=== PATIENT | male | born 1970 | race Caucasian/White ===

== ENCOUNTER → 2019-06-13 10:54 | Outpatient (BNVA) | payer OTHER, SELFPAY | PROVIDERS: Family Provider Internal Medicine; PCP Internal Medicine; Visit Provider Internal Medicine Rheumatology | DX: Z79.899 Other long term (current) drug therapy (principal); Z11.59 Encounter for screening for other viral diseases; Z72.89 Other problems related to lifestyle | CPT/HCPCS: 36415; 86803 ==

== ENCOUNTER → 2019-07-15 11:13 | Outpatient (BNVA) | payer OTHER, SELFPAY | PROVIDERS: Family Provider Internal Medicine; PCP Internal Medicine; Visit Provider Urology | DX: N43.3 Hydrocele, unspecified (principal); N20.9 Urinary calculus, unspecified; M45.2 Ankylosing spondylitis of cervical region | CPT/HCPCS: 81001 ==

== ENCOUNTER 2019-07-22 11:17 | Day surgery (SDC) | payer OTHER, SELFPAY ==
[2019-07-19 10:02] VITALS: BMI 38.7
[2019-07-22] VITALS (7 sets, daily range): BP systolic 90–168; BP diastolic 53–106; PULSE 67–80; RESP 15–19; TEMP 36.4–36.6; O2SAT 92–97
[2019-07-22] MEDS: sodium chloride 0.9% 1,000 ML 30 ML IV (11:48)
--- NOTE | 2019-07-22 11:54 | P.HPUD_ITS ---
Surgery/Procedure H&P Update DATE OF PROCEDURE: July 22, 2019 DATE H&P PERFORMED: 07/15/19 H&P UPDATE INFORMATION: I have reviewed H&P completed within last 30 days, I have examined patient prior to procedure, No changes to prior documentation and H&P is in [facility] EMR on date indicated PREOP DIAGNOSIS: Symptomatic bilateral hydroceles PLANNED PROCEDURE: Operation Date: 07/22/19 12:00 Proposed Procedures p Hydrocele Repair 63627 N43.3(Bilateral) - Kory Holt MD
--- NOTE | 2019-07-22 11:55 | ANES.PREANE2 ---
Pre-Anesthetic Assessment Pre-Anesthetic Assessment: Height/Weight: Height 1.68 m Weight 108.862 kg Temp Pulse Resp BP Pulse Ox 97.7 F 67 18 168/106 97 07/22/19 11:32 07/22/19 11:32 07/22/19 11:32 07/22/19 11:32 07/22/19 11:32 Preop Diagnosis: Symptomatic bilateral hydroceles Proposed Procedure: Operation Date: 07/22/19 12:00 Proposed Procedures p Hydrocele Repair 20062 N43.3(Bilateral) - Kory Holt MD Familial anesthetic complications: Patient has severe gag reflex and aspirated with his last holt surgery, had to spend the night. He developed no sequelae afterwards. Will make sure deep when intubating, place OG, and make sure awake and following commands before extubation. Was Beta Dashawn taken within 24 hours: N/A Last intake: Intake Last Liquid Date 07/22/19 Last Liquid Time 07:00 Last Solid Date 07/21/19 Last Solid Time 20:00 Social: Social History: Tobacco Exam: Pre-Anes Outpt Exam: alert, oriented x 3, clear to auscultation bilaterally and regular rate & rhythm Airway: Cervical ROM: Other (limited extension w/ ankylosing spondylitis) MP: 4 Dentition: Chipped Pulmonary: Pulmonary: None reported CV/HEM: CV/HEM: HTN : : None reported Hepatic: Hepatic: None reported GI: GI: GERD (mild) Metabolic: Metabolic: Morbid obesity Musc/skel: Comments: ANKYLOSING SPONDYLITIS Neuropsych: Neuropsych: None reported Anesthetic Plan: ASA status: 3 Anesthesia: General Risk of > 500 ml blood loss (7ml/kg in children): No Meds/Allergies Current Medications: Current Medications Generic Name Dose Route Start Last Admin Trade Name Freq PRN Reason Stop Dose Admin Sodium Chloride 1,000 mls @ 30 ml s/hr 07/22/19 10:15 07/22/19 11:48 Sodium Chloride 0.9% IV 07/23/19 10:14 30 mls/hr .Q24H CHANDU Administration PFSH Anesthesia PFSH: Social History Smoking and tobacco status: never smoked Alcohol intake: unknown Adopted: No Caregiver/support person: No Lives independently: No Household members: spouse Marital status: Current occupational status: employed History of recent travel: No Current gender identity: Male Data Anesthesia Cardiac Studies: No Data to Display
--- NOTE | 2019-07-22 13:22 | P.OP_ITS ---
Operative Report Date of procedure: July 22, 2019 Pre-op Diagnosis: Symptomatic bilateral hydroceles Post-op diagnosis: same Post-op Diagnosis: Right greater than sign >left Procedure Done: Scrotal exploration with bilateral hydrocele repair Surgeon: Yanet Anesthesia: General Estimated blood loss: Minimal Urine output: Not measured Findings: Very large tense right hydrocele. Normal-appearing testicle. Smaller left. Condition: stable Disposition: PACU Brief History: Marcos is a very pleasant 48-year-old white male with a history of increasingly symptomatic large right hydrocele. Also known to have a left hydrocele. Ultimately chose surgical treatment due to the increasing size and impairment of activity including sexual activity based on the size. Admitted to outpatient surgery for that Procedure: After routine preoperative evaluation examination and obtaining of informed consent he was taken to the operating suite on 07/22/2019 where general anesthesia was administered without difficulty after appropriate timeout was p erformed, SCDs confirmed to be functioning, preoperative antibiotics administered, beta-lars protocol confirmed. Prepped and draped in the usual sterile fashion in supine position pain careful attention to avoiding pressure points. A midline median raphae incision was made over the right hydrocele. Incision was taken down through skin subcutaneous tissue and the hydrocele sac was developed. It was dissected free from the surrounding tissue. It was quite extensive in size. The hydrocele sac appeared to be very thick and for that reason it was decided to not perform a Lords procedure but rather to do a partial sac excision and bottle type repair. The hydrocele was opened and the fluid drained and further opened to expose the testicle. There was some induration in the epididymis but the testicle itself otherwise look normal. The left hemiscrotum was then also evaluated palpably and found to be without any significant hydrocele and therefore no work was done on the left. A portion of the hydrocele sac was excised. The edges were fulgurated for hemostasis. The sac was then folded around the testicle and cord and loosely closed behind that pain careful attention to hemostasis of the edges and leaving adequate room for the spermatic cord. Hemostasis was confirmed. The wound was copiously irrigated with normal saline solution. The testicle was returned to its anatomic position in the scrotum. 3-0 Vicryl was utilized to approximate the dartos layer in a running fashion and then 4-0 subcuticular closure of the skin was performed. Further coverage was performed with skin glue. After drying a Telfa was placed on the incision site fluff dressings were applied and a scrotal support was utilized for light compression. Tolerated the procedure well without complications and was awakened in the operating room and returned to the recovery in stable condition. PLANS: 1. Anticipate discharge from outpatient surgery 2. Follow-up in 1 month roughly for wound check. 3. Prescription for pain medication and a several day course of antibiotics for prophylaxis given the likely significant space fluid filling.
--- NOTE | 2019-07-22 15:08 | SUR.PHASEI ---
PT MORE ALERT ON RA NOW, PT DENIES PAIN AND NAUSEA WARM BLANKETS X 2 VSS
== END 2019-07-22 16:00 | disposition home or self-care (01) ==
PROVIDERS: Family Provider Internal Medicine; PCP Internal Medicine; Visit Provider Urology
PROC: (CPT 55060; principal; 2019-07-22 13:45)
DX: N43.3 Hydrocele, unspecified (principal); K21.9 Gastro-esophageal reflux disease without esophagitis; N20.9 Urinary calculus, unspecified; M54.9 Dorsalgia, unspecified
CPT/HCPCS: 55060; 12345; 88302; J0330; J0690; J1100; J2001; J2250; J2405; J2704; J3010; J3490; J7030

== ENCOUNTER → 2019-07-25 15:07 | Outpatient (BNVA) | payer OTHER, SELFPAY | PROVIDERS: Family Provider Internal Medicine; PCP Internal Medicine; Visit Provider Internal Medicine Rheumatology | DX: M45.9 Ankylosing spondylitis of unspecified sites in spine (principal); M46.1 Sacroiliitis, not elsewhere classified; Z79.899 Other long term (current) drug therapy | CPT/HCPCS: 36415; 80076; 82565; 85025; 85651; 86140; 99214 ==

== ENCOUNTER → 2019-08-13 13:45 | Outpatient (BNVA) | payer OTHER, SELFPAY | PROVIDERS: Family Provider Internal Medicine; PCP Internal Medicine; Visit Provider Internal Medicine Rheumatology | DX: Z79.899 Other long term (current) drug therapy (principal); Z11.59 Encounter for screening for other viral diseases; Z72.89 Other problems related to lifestyle; R74.0 Nonspecific elevation of levels of transaminase and lactic acid dehydrogenase [LDH] | CPT/HCPCS: 36415; 80076; 86704; 86706; 86803; 87340 ==

== ENCOUNTER 2020-12-17 05:40 | Inpatient (IN) | payer OTHER, SELFPAY ==
[2020-12-17] VITALS (36 sets, daily range): BP systolic 106–192; BP diastolic 58–123; PULSE 80–104; RESP 12–36; TEMP 36.4–36.6; O2SAT 93–97; BMI 37.1
--- NOTE | 2020-12-17 | XACV_ITS ---
Ht: 168 cm Wt: 104 kg BSA: 2.25 m2 Gender: Male : 1970 Exam Priority: Routine Procedure(s): Procedure Description: Diagnostic procedure Procedure Description: Left Heart Catheterization Procedure Description: Left ventriculography Diagnostic Cath Status: Emergency Diagnostic Findings * INDICATION: Acute chest pain/ dynamic EKG changes. * No disease noted in the Left Main, Left Anterior Descending, Right, or Circumflex coronary arteries. * Coronary angiography shows right dominance. Conclusions 1. No disease noted in the Left Main, Left Anterior Descending, Right, or Circumflex coronary arteries. 2. Normal left ventricular systolic function. Ejection fraction of 60%. Recommendations * Transfer to [facility]. * Aggressive medical therapy. * D dimer is elevated. Will need CTA to rule out PE. * Outpatient cardiology follow up in 4 weeks. Interventional RX Recommendation: medical therapy and/or counseling Diagnostic RX Recommendation: medical therapy and/or counseling Ventriculography Ejection Fraction: 60.0 % Pressures Phase:Rest AO : 139 / 85 ( 109 ) @ 7:05:00 AM 141 / 68 ( 101 ) @ 7:05:00 AM LV : 150 / -3 / 16 @ 7:03:00 AM 150 / -3 / 16 @ 7:03:00 AM 146 / 0 / 18 @ 7:05:00 AM 147 / -1 / 17 @ 7:05:00 AM Valves Phase:DefaultPhase AV : 8.0 @ 8:15:50 AM 8.0 @ 8:15:50 AM AV Mean Gradient: 28.0 @ 8:15:50 AM 28.0 @ 8:15:50 AM Clinical Evaluation EBL: 5mL-10mL Procedural Details Procedure Consent Obtained. Admit Source: Emergency department. Pre-Procedure Time Out. Identified patient by full name and date of as verbalized by the patient/guarantor. Does the consent match the physician's order: Yes. Accurate & Complete Informed Consent: N/A Emergent. Inpatient/Outpatient History & Physical on Chart: N/A Emergent. If H&P is completed, is and addenduem needed: N/A Emergent; If yes, is the addendum complete: N/A Emergent. Visualize and Verify Site with Patient/Guarantor: N/A. Relevant Radiology Images available: N/A Emergent. Pre-op teaching completed and patient verbalized understanding. The risks, benefits, and alternatives of sedation and/or procedure were discussed by physician. The patient agrees to continue. Procedure started. Correct patient, site and procedure confirmed by cath team. PERRLA. Strong, equal hand circulation supervisor bilaterally. Lungs clear x 5 lobes. IV Site on Arrival: 18 gauge in the right anticubital. Oxygen started at 2liters/min via nasal canula. bilateral groins was prepped with chloroprep then draped in the usual sterile fashion. right radial was prepped with chloroprep then draped in the usual sterile fashion. Physician notified. Baseline sample Acquired. HR: 75 BPM. Physician arrived. Physician scrubbed in. Immediate Pre-Procedure Time Out. Correct Patient: Yes; Correct Procedure: Yes; Correct Site: Yes; Correct Patient Position: Yes; Correct Supplies: Yes; Dried Flammable Prep: Yes; Blood Products Available: N/A;. Lidocaine 1% infiltrated to the right radial. Arterial access obtained. A 5 nigerien TIG catheter in over wire. handinjection performed. Catheter out. unable to advance catheter to correct placement. Groin access attempted. Lidocaine 1% infiltrated to the right groin. Arterial access obtained with micropuncture set. family updated. A 6 nigerien JL4 catheter in over wire. Catheter out. A 6 nigerien JR4 catheter in over wire. Multiple views taken of right coronary artery. Catheter out. A 6 nigerien JL4 catheter in over wire. Multiple views taken of left coronary artery. Catheter out. A 6 nigerien Angled Pig catheter in over wire. EDP Sample taken: LV 150/-4,16; HR: 82 BPM; SpO2: 97%. LV gram performed in TOVAR @ 10 mL/second for a total of 20 mL. EDP Sample taken: LV 146/-1,18; HR: 80 BPM; SpO2: 96%. Pullback taken: LV 147/-2,17; AO 139/85(109); Mean: 28mmHg, Peak to Peak: 8mmHg, SEP: 6sec/min; HR: 80 BPM; SpO2: 96%. Catheter out. TR band placed. Hemostasis obtained. Lidocaine 1% infiltrated to the right groin. Angioseal placed without complications. No signs or symptoms of hematoma noted. Sterile dressing applied per usual sterile fashion. Lot#[id number]. Post Procedure: Pulses reassessed and unchanged. PERRLA. Strong, equal hand circulation supervisor bilaterally. No VTE prophylaxis required. Medication's Wasted: Heparin = 1000 units. Medication's Wasted: Nitro = 49.8 mg. Medication's Wasted: Lidocaine 1% = 6 mL. Medication's Wasted: Other = versed 1 mg. Total IV fluids: 83 mL. Contrast type used: Omnipaque 300 mgI/mL, 500 mL bottle. Contrast Material : Omnipaque 109 ml. Complications: none. Post-op diagnosis: non obstructive CAD. Estimated blood loss: 5mL-10mL. Procedure completed. A TR Band was successful obtaining hemostatsis at the Right Radial artery insertion site. A Angio-Seal VIP ([employer]) was successful obtaining hemostatsis at the Right Femoral artery insertion site. Patient transferred by bed to 1st floor. Vital chart was stopped. Access Site Site: Right Radial artery Sheath Size: 6 Fr Hemostasis Method: TR Band Hemostasis Success: Successful Site: Right Femoral artery Sheath Size: 6 Fr Hemostasis Method: Angio-Seal VIP ([employer]) Hemostasis Success: Successful Procedure Medications Start: 7:35 AM Stop: 7:35 AM Medication: Versed Amount: 1 mg Route: I.V. Start: 7:36 AM Stop: 7:36 AM Medication: Fentanyl Amount: 50 mcg Route: I.V. Start: 7:38 AM Stop: 7:38 AM Medication: Versed Amount: 1 mg Route: I.V. Start: 7:39 AM Stop: 7:39 AM Medication: Versed Amount: 1 mg Route: I.V. Start: 7:39 AM Stop: 7:39 AM Medication: Fentanyl Amount: 50 mcg Route: I.V. Start: 7:40 AM Stop: 7:40 AM Medication: Nitrogylcerin Amount: 200 mcg Route: I.A. Start: 7:45 AM Stop: 7:45 AM Medication: Versed Amount: 1 mg Route: I.V. Start: 7:52 AM Stop: 7:52 AM Medication: Versed Amount: 1 mg Route: I.V. I, the attending physician, have reviewed and verified all procedure medications. Yes, all medications given per verbal order Report Signatures Finalized by Sp Sood MD on 12/31/2020 09:12 AM
--- NOTE | 2020-12-17 05:59 | XRR_ITS ---
PROCEDURE INFORMATION: Exam: XR Chest Exam date and time: 12/17/2020 5:59 AM Age: 50 years old Clinical indication: Shortness of breath; Chest pressure; Patient HX: Central chest pain with SOB. TECHNIQUE: Imaging protocol: XR of the chest. Views: 1 view. COMPARISON: CR Chest 2 views* [id number] 11/09/2018 11:14 AM FINDINGS: Lungs: There is a small infiltrate in the left base along the diaphragm consistent with left basilar pneumonia. The right lung is clear. Pleural spaces: Unremarkable. No pleural effusion. No pneumothorax. Heart/Mediastinum: Unremarkable. No cardiomegaly. Bones/joints: Unremarkable. XR/XR chest 1V portable [id number] IMPRESSION: There is a small infiltrate in the left base along the diaphragm consistent with pneumonia. Radiation Dose CTDIVOL = (mGy): DLP = (mGy-cm)
--- NOTE | 2020-12-17 05:59 | ECG_ITS ---
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 Measurements Intervals [place] Rate: 86 P: 44 [place]: 167 QRS: -34 QRSD: 92 T: 40 QT: 331 QTc: 397 Interpretive Statements SINUS RHYTHM LEFT AXIS DEVIATION [QRS AXIS < -30] VOLTAGE CRITERIA FOR LVH [MEETS CRITERIA IN ONE OF: R(aVL), S(V1), R(V5), R(V5/V6)+S(V1)] No previous ECG available for comparison Electronically Signed On 12-18-2020 9:38:37 CDT by Vashti Dominguez M.D. [email or web address]
[2020-12-17] MEDS: aspirin 81 mg Chew Tablet 324 MG PO (06:04)
[2020-12-17 06:06] LABS: Basophils # 0.1 10^3/uL (0.0-0.1); Basophils % 0.4 %; Eosinophils # 0.2 10^3/uL (0.0-0.8); Eosinophils % 1.4 %; Lymphocytes # 3.2 10^3/uL (0.8-4.8); Lymphocytes % 21.2 %; Mean Corpuscular HGB Conc 31.9 g/dL (30.0-36.0); Mean Corpuscular Hemoglobin 29.6 pg (28.0-34.0); Mean Corpuscular Volume 92.7 fl (80-94); Mean Platelet Volume 9.9 fL (7.4-10.4); Monocytes # 1.4 10^3/uL (0.2-0.9); Monocytes % 9.5 %; Neutrophils # 10.13 10^3/uL (1.8-7.7); Nucleated Red Blood Cells % 0 %; Platelet Count 390 10^3/cmm (130-400); Red Blood Count 5.07 10^6/uL (4.1-5.3); White Blood Count 15.1 10^3/uL (4.0-10.0)
--- NOTE | 2020-12-17 06:10 | ED_ITS ---
HPI - Chest Pain General: Chief Complaint: Chest Pain Stated Complaint: chest pains, difficulty breathing Time Seen by Provider: 12/17/20 05:52 History of Present Illness: HPI narrative: 50-year-old male presents emergency room with complaint of chest pain. He states he was up since around midnight began having chest pain while driving into work later on 5am. Per nursing not he has had chest pain intermittently for the last 2 days. Was worsened with exertion when he was going up some stairs. Pain radiates into his left shoulder. He has been somewhat short of breath pain is worse with deep inspiration. Denies any recent fever sweats chills cough or cold symptoms. He has a history of ankylosing spondylolysis and is on Enbrel and prednisone. He states he is recently been having a bit of a flareup which is why he was up most of the night. He has no known history of diabetes or coronary artery disease he does have a history of hypertension and hyperlipidemia. He does smoke. MD complaint: chest pain and chest heaviness Pertinent past history: other (Hypertension) Onset (ago): hour(s) (1) Timing of current episode: episodic Prior episodes: No Onset: during rest Pain location: substernal and left chest Pain radiation: left shoulder Severity: moderate Quality: tightness, aching and heaviness Relieving factors: nothing Exacerbating factors: nothing Context: other (Chronic back pain with flare secondary to ankylosing spondylitis) Associated symptoms: Reports dyspnea; Deny abdominal pain, diaphoresis, fever(s), leg edema, nausea, palpitations, sense of impending doom, syncope or vomiting Treatment prior to arrival: none Review of Systems Const: Denies: fever(s) or diaphoresis ENMT: Denies: throat pain, ear or mastoid pain, nasal discharge or nasal congestion Card: Denies: palpitations or syncope Resp: Reports: dyspnea GI: Denies: abdominal pain, nausea or vomiting : Denies: flank pain, dysuria, urinary frequency or urinary urgency Skin/Breast: Denies: rash or pruritus PFSH ED PFSH: Medical History Bilateral hydrocele GERD (gastroesophageal reflux disease) Urolithiasis Surgical History History of appendectomy History of cholecystectomy History of lithotripsy History of tonsillectomy Family History Grandmother Cancer Grandfather Cancer Social History Smoking and tobacco status: never smoked Alcohol intake: unknown Adopted: No Caregiver/support person: No Lives independently: No Household members: spouse Marital status: Current occupational status: employed History of recent travel: No Current gender identity: Male Physical Exam Const: COMMON NORMALS: no acute distress GENERAL APPEARANCE: cooperative and comfortable ORIENTATION/CONSCIOUSNESS: Yes awake, Yes oriented to person, Yes oriented to place and Yes oriented to time HENMT: COMMON NORMALS: normocephalic, atraumatic and hearing grossly normal bilaterally HEAD & SCALP: normocephalic and atraumatic Neck/C-Spine: COMMON NORMALS: no JVD Resp: COMMON NORMALS: normal respiratory effort, No retractions, No use of accessory muscles and clear to auscultation bilaterally AUSCULTATION: clear to auscultation bilaterally Cardio: COMMON NORMALS: no JVD, regular rate, regular rhythm and No murmurs present (Cardio) RATE: regular rate RHYTHM: regular rhythm GI: COMMON NORMALS: Soft to palpation and No hepatosplenomegaly present AUSCULTATION: Yes normoactive bowel sounds PALPATION: Yes Soft to palpation, No Tenderness to palpation present (GI), No Guarding due to palpation present (GI) and Yes No hepatosplenomegaly present Extremity: COMMON NORMALS: normal to inspection, capillary refill normal, no clubbing, cyanosis or edema, no calf tenderness and no pedal edema Neuro: SENSORIUM/ORIENTATION: Yes oriented to person, Yes oriented to place and Yes oriented to time Skin: COMMON NORMALS: no rashes or lesions noted GENERAL SKIN EXAM: no rashes or lesions noted Course Vital Signs: Vital signs: Vital Signs Temperature 97.6 F 12/17/20 05:50 Pulse Rate 83 12/17/20 07:30 Respiratory Rate 24 H 12/17/20 07:30 Blood Pressure 153/98 12/17/20 07:30 Pulse Oximetry 97 12/17/20 07:30 MDM - Chest Pain MDM Narrative: Medical decision making narrative: First EKG showed Gera axis deviation. Patient continued to have chest pain and we repeated an EKG. Patient had reported some relief with the topical nitro but when he got up at the bedside to urinate he noticed a sharp increase in chest pain associated with shortness of breath and radiation to the left shoulder. Repeat EKG shows a subtle ST elevation developing in V2 and V3 that was not present in the initial EKG. At this point it does not fully meet criteria as there is not quite enough elevation in V3 to be diagnostic however since patient's having chest pain and reviewed with Dr. Altamirano he recommended that we go to the Data Analytics Developer. Patient is receiving heparin and loading dose of Plavix and switch him to IV nitro and he is already had his aspirin. Lab Data: Labs: Lab Results 12/17/20 12/17/20 12/17/20 05:50 05:50 05:50 WBC 15.1 10^3/uL H 10 ^3/uL (4.0-10.0) RBC 5.07 10^6/uL 10^6 /uL (4.1-5.3) Hgb 15.0 g/dL g/dL (11.7-16.6) Hct 47.0 % % (42.0-52.0) MCV 92.7 fl fl (80-94) MCH 29.6 pg pg (28.0-34.0) MCHC 31.9 g/dL g/dL (30.0-36.0) RDW 13.0 % % (12.1-15.1) Plt Count 390 10^3/cmm 10^3 /cmm (130-400) MPV 9.9 fL fL (7.4-10.4) Neut % (Auto) 67.0 % % Lymph % (Auto) 21.2 % % [place] % (Auto) 9.5 % % Eos % (Auto) 1.4 % % Baso % (Auto) 0.4 % % Neut # (Auto) 10.13 10^3/uL H 1 0^3/uL (1.8-7.7) Lymph # (Auto) 3.2 10^3/uL 10^3/ uL (0.8-4.8) [place] # (Auto) 1.4 10^3/uL H 10^ 3/uL (0.2-0.9) Eos # (Auto) 0.2 10^3/uL 10^3/ uL (0.0-0.8) Baso # (Auto) 0.1 10^3/uL 10^3/ uL (0.0-0.1) Nucleated RBC % (a uto) 0 % % Nucleated RBCs # 0.0 /100WBC /100W BC Sodium 134 mmol/L L mmol /L (136-145) Potassium 4.1 mmol/L mmol/L (3.5-5.1) Chloride 97 mmol/L L mmol/ L (98-107) Carbon Dioxide 25 mmol/L mmol/L (22-29) Anion Gap 16.1 (5-19) BUN 13 mg/dL mg/dL (6-20) Creatinine 0.9 mg/dL mg/dL (0.7-1.2) GFR Calculation 88.6 mL/min L mL/ min (90-130) Glucose 198 mg/dL H mg/dL (65-115) Calculated Osmolal ity 284 mOsm/kg L mOs m/kg (285-295) Calcium 10.2 mg/dL mg/dL (8.5-10.5) Total Bilirubin 0.5 mg/dL mg/dL (0.15-1.2) AST 17 U/L U/L (0-40) ALT 32 U/L U/L (0-41) Alkaline Phosphata se 92 IU/L IU/L (40-130) Troponin T Baselin e 6 ng/L ng/L (0-15) Total Protein 8.3 g/dL g/dL (6.6-8.7) Albumin 4.3 g/dL g/dL (3.5-5.2) Globulin 4.0 g/dL g/dL (1.3-4.6) Discharge Plan Discharge Patient Disposition: Admitted As Inpatient Clinical Impression: Unstable angina pectoris, Ankylosing spondylitis Condition: Stable Coding Level of Care Code ED Core Inserter for Jung Fwd Exam Comprehensive
[2020-12-17] MEDS: nitroglycerin 1 gm/inch oint Pkt 0.5 INCH TOPICAL (06:20)
[2020-12-17 06:32] LABS: Alanine Aminotransferase 32 U/L (0-41); Albumin Level 4.3 g/dL (3.5-5.2); Alkaline Phosphatase 92 IU/L (40-130); Anion Gap 16.1 (5-19); Aspartate Amino Transferase 17 U/L (0-40); Blood Urea Nitrogen 13 mg/dL (6-20); Calcium 10.2 mg/dL (8.5-10.5); Carbon Dioxide 25 mmol/L (22-29); Chloride 97 mmol/L (98-107); Glomerular Filtration Rate 88.6 mL/min (90-130); Glucose 198 mg/dL (65-115); Osmolality Calculated 284 mOsm/kg (285-295); Potassium 4.1 mmol/L (3.5-5.1); Sodium 134 mmol/L (136-145); Total Bilirubin 0.5 mg/dL (0.15-1.2); Total Protein 8.3 g/dL (6.6-8.7)
[2020-12-17 06:33] LABS: Troponin(5th) Baseline 6 ng/L (0-15)
[2020-12-17] MEDS: morphine 4 mg/mL SDV 1 mL IVP (07:11)
[2020-12-17] MEDS: ondansetron 2 mg/ML SDV 2 mL 4 MG IVP (07:12)
[2020-12-17] MEDS: clopidogrel 300 mg Tablet 600 MG PO (07:22)
[2020-12-17] MEDS: heparin 5,000 unit/mL INJ 1 mL 4000 UNIT IVP (07:23)
--- NOTE | 2020-12-17 07:32 | P.HP_ITS ---
Providers/Chief Complaint Admitting Physician: Sp Sood MD Primary Care Provider: Shona Campos MD Chief Complaint: chest pains, difficulty breathing History of Present Illness Wilder Heard Jr is a 50 year old male with past medical history of ankylosing spondylitis presented to the ER with complaints of chest pain. According to patient, He first noted pain at midnight but it got severe early in the morning. Worsened with exertion. Also has noted association with deep breathing. His initial EKG did not have any ischemic changes however an EKG performed later showed concerning changes in V1 to V3. Given ongoing active chest pain, he was taken to the Batting Machine Operator. His coronary angiogram showed no significant coronary artery disease. Chest x-ray demonstrated possible pneumonia. Review of Systems General: Reports: 10 or more systems reviewed and unremarkable except in HPI and below Const: Denies: fever(s) Eyes: Denies: change in vision ENMT: Denies: throat pain Card: Reports: chest pain Resp: Reports: dyspnea GI: Denies: abdominal pain : Denies: flank pain Musc: Reports: back pain; Denies: neck pain Skin/Breast: Denies: rash Neuro: Denies: headache(s) Psych: Denies: anxiety Endo: Denies: polyuria Artis/Lymph: Denies: easy bruising Medications/Allergies Home Medications Medication Instructions Recorded Confirmed Last Taken Type lisinopril 20 mg tablet 20 mg PO QAM 07/15/19 12/17/20 12/17/20 04:30 History ondansetron HCl 4 mg tablet 4 mg PO Q8H PRN 07/15/19 12/17/20 Unknown History tamsulosin 0.4 mg capsule 0.4 mg PO DAILY PRN 07/15/19 12/17/20 Unknown History hydrocodone-acetaminophen [[place]] 1 tab PO Q8H PRN #10 tab 07/22/19 12/17/20 Unknown Rx Enbrel 50 mg SUBCUT Q7D 12/17/20 12/17/20 Unknown History Excedrin Migraine 3 tab PO BID PRN 12/17/20 12/17/20 12/17/20 05:00 History Realfood Organic Multivitamin 1 tab PO DAILY 12/17/20 12/17/20 Unknown History Vitamin C 1,000 mg PO DAILY 12/17/20 12/17/20 Unknown History celecoxib 200 mg PO BID PRN 12/17/20 12/17/20 Unknown History magnesium 1 tab PO DAILY 12/17/20 12/17/20 Unknown History pantoprazole 40 mg PO DAILY #30 tab 12/17/20 Unknown Rx pravastatin See Rx Instructions .ROUTE .COMPLEX 12/17/20 12/17/20 Unknown History prednisone 20 mg PO DAILY PRN 12/17/20 12/17/20 Unknown History zinc 1 cap PO DAILY 12/17/20 12/17/20 Unknown History Allergies Allergy/AdvReac Type Severity Reaction Status Date / Time No Known Allergies Allergy Verified 12/17/20 11:28 PFSH Acute 2 PFSH: Medical History (Updated 12/18/20 @ 12:14 by Sp Sood M.D) Ankylosing spondylitis Bilateral hydrocele GERD (gastroesophageal reflux disease) Hyperlipidemia Hypertension Urolithiasis Surgical History History of appendectomy History of cholecystectomy History of lithotripsy History of tonsillectomy Family History Grandmother Cancer Grandfather Cancer Social History Smoking and tobacco status: never smoked Alcohol intake: current Alcohol intake frequency: 0-2 Drinks per Day Adopted: No Caregiver/support person: No Lives independently: No Household members: spouse Marital status: Current occupational status: employed History of recent travel: No Current gender identity: Male Vitals/I&O/Wt Last Vital Signs Temp 97.6 F 12/17/20 05:50 Pulse 84 12/17/20 06:20 Resp 18 12/17/20 07:11 BP 151/97 12/17/20 06:20 Pulse Ox 97 12/17/20 06:02 Weight last 48 hrs Weight 230 lb Physical Exam Narrative: EXAM NARRATIVE: GENERAL: Patient is alert, awake and oriented x3. [] NECK: No jugular vein distension. [] HEENT: No cyanosis. No icterus. No pallor. [] HEART: Regular S1 and S2. No murmur, rub or gallop. [] LUNGS: Clear to auscultate bilaterally. [] ABDOMEN: Soft, nontender and nondistended. Positive bowel sounds. No guarding, rebound or tenderness. [] CENTRAL NERVOUS SYSTEM: Grossly nonfocal. [] EXTREMITIES: Lower extremities with 1+ edema bilaterally. Pulses palpable in the lower extremities, both dorsalis pedis and posterior tibial. [] Data : 12/17/20 05:50 12/17/20 05:50 A&P Assessment and plan (1) Hypertension: Status: Acute (2) Ankylosing spondylitis: Status: Acute (3) Chest pain: Status: Acute Patient had presented with chest pain symptoms. It has both typical and atypical features. However given dynamic changes on EKG, we proceeded with emergent coronary angiogram. It did not reveal any significant coronary artery disease. His symptoms could be secondary to his rheumatological condition versus coronary vasospasm. We will better control blood pressure. Chest x-ray demonstrated possible pneumonia. We will consult hospitalist service for management of medical issues. Transfer to CSU. His D-dimer has come back elevated. May benefit from CTA. He may be discharged later today if cleared from medicine team. Attestations Medical Necessity Statement*: Care not expected to cross 2 midnights. His coronary angiogram does not reveal significant coronary artery disease. Eliza dumont medicine evaluation for possible pneumonia. Coding Level of Care Code Acute [employer] Sales Consultant for [facility] Diagnoses Hypertension I10 Ankylosing spondylitis M45.9 Chest pain R07.9
--- NOTE | 2020-12-17 07:36 | PC.NURSE ---
At 0735- pt belongings given to pt mother
--- NOTE | 2020-12-17 07:59 | ECG_ITS ---
[facility] Test Date: 2020-12-17 Pat Name: Wilder Heard Jr Department: Room: Gender: Male Duct Maker: : 1970 Requested By: Wes Briceno Order Number: [id number] Stanislaw MD: Vashti Dominguez M.D. Measurements Intervals [place] Rate: 77 P: 54 MD: 165 QRS: -36 QRSD: 88 T: 45 QT: 345 QTc: 392 Interpretive Statements SINUS RHYTHM LEFT AXIS DEVIATION [QRS AXIS < -30] MODERATE VOLTAGE CRITERIA FOR LVH, CONSIDER NORMAL VARIANT [MEETS CRITERIA IN ONE OF: R(aVL), S(V1), R(V5), R(V5/V6)+S(V1)] No previous ECG available for comparison Electronically Signed On 12-18-2020 19:44:18 CDT by Vashti Dominguez M.D. [id number]
--- NOTE | 2020-12-17 08:40 | PC.NURSE ---
Pt arrived to room 106 from confectionery laboratory manager at approximately 0830. Pt drsg to right groin dry and intact. No hematoma, swelling or bleeding to site noted. Pt also has right radial TR Band, No hematoma, swelling or bleeding noted. Pt had no c/o pain or discomfort at the present time. Call light in reach. Will cont to monitor.
[2020-12-17 09:57] LABS: Procalcitonin 0.07 ng/mL (0-0.5)
--- NOTE | 2020-12-17 09:59 | PM.CONSULT ---
Providers/Reason For Consult Consulting Physician/Specialty*: Tanner Hassan MD, hospitalist Reason for Consult*: Chest pain, possible pneumonia Attending Physician: Sp Sood M.D Primary Care Provider: Shona Campos MD History of Present Illness History of Present Illness Wilder Heard Jr is a 50 year old male who presented to the emergency department, with concerns of chest discomfort left side, hurting worse when he took a breath starting at approximately midnight. No history of this type of discomfort before. Occasional cough, but nonproductive. Some sweating at night. Feels like pressure at times, but currently much better. No nausea. Did have shortness of breath with the event and with exertion afterwards. He reports he has been vaccinated for Covid, with both vaccines many months ago. Does have occasional reflux. Does use a significant amount of ibuprofen as well as Excedrin. Secondary to concern of some EKG changes, ST elevation myocardial infarction was called and he was taken to the Special Delivery Worker where noted significant coronary disease was noted. He reports he has quite a bit of pain from his ankylosing spondylitis and this is why he takes ibuprofen, Excedrin. Review of Systems General: Reports: 10 or more systems reviewed and unremarkable except in HPI and below Const: Denies: fever(s) Eyes: Denies: change in vision ENMT: Denies: throat pain Card: Reports: chest pain Resp: Reports: dyspnea GI: Denies: abdominal pain : Denies: flank pain Musc: Reports: back pain; Denies: neck pain Skin/Breast: Denies: rash Neuro: Denies: headache(s) Psych: Denies: anxiety Endo: Denies: polyuria Artis/Lymph: Denies: easy bruising Meds/Allergies Home Medications and Allergies Home Medications Medication Instructions Recorded Confirmed Last Taken Type lisinopril 20 mg tablet 20 mg PO QAM 07/15/19 12/17/20 12/17/20 04:30 History ondansetron HCl 4 mg tablet 4 mg PO Q8H PRN 07/15/19 12/17/20 Unknown History tamsulosin 0.4 mg capsule 0.4 mg PO DAILY PRN 07/15/19 12/17/20 Unknown History hydrocodone-acetaminophen [[place]] 1 tab PO Q8H PRN #10 tab 07/22/19 12/17/20 Unknown Rx Realfood Organic Multivitamin 1 tab PO DAILY 12/17/20 12/17/20 Unknown History ascorbic acid (vitamin C) [Vitamin 1,000 mg PO DAILY 12/17/20 12/17/20 Unknown History C] pzzvsiz-wwxtyvsymfmab-qtmxmpnz 3 tab PO BID PRN 12/17/20 12/17/20 12/17/20 05:00 History [Excedrin Migraine] celecoxib 200 mg PO BID PRN 12/17/20 12/17/20 Unknown History etanercept [Enbrel] 50 mg SUBCUT Q7D 12/17/20 12/17/20 Unknown History ibuprofen [Advil] 800 mg PO BID PRN 12/17/20 12/17/20 Unknown History magnesium 1 tab PO DAILY 12/17/20 12/17/20 Unknown History pravastatin See Rx Instructions .ROUTE .COMPLEX 12/17/20 12/17/20 Unknown History prednisone 20 mg PO DAILY PRN 12/17/20 12/17/20 Unknown History zinc 1 cap PO DAILY 12/17/20 12/17/20 Unknown History Allergies Allergy/AdvReac Type Severity Reaction Status Date / Time No Known Allergies Allergy Verified 12/17/20 11:28 PFSH Acute PFSH: Medical History (Updated 12/17/20 @ 12:55 by Tanner Hassan MD) Ankylosing spondylitis Bilateral hydrocele GERD (gastroesophageal reflux disease) Hyperlipidemia Hypertension Urolithiasis Surgical History History of appendectomy History of cholecystectomy History of lithotripsy History of tonsillectomy Family History Grandmother Cancer Grandfather Cancer Social History (Updated 12/17/20 @ 12:52 by Tanner Hassan MD) Smoking and tobacco status: never smoked Alcohol intake: current Alcohol intake frequency: 0-2 Drinks per Day Adopted: No Caregiver/support person: No Lives independently: No Household members: spouse Marital status: Current occupational status: employed History of recent travel: No Current gender identity: Male Vitals/I&O/Wt Last Vital Signs Temp 97.6 F 12/17/20 05:50 Pulse 83 12/17/20 07:30 Resp 24 H 12/17/20 07:30 BP 153/98 12/17/20 07:30 Pulse Ox 97 12/17/20 07:30 Weight last 48 hrs Weight 104.326 kg Physical Exam Narrative: EXAM NARRATIVE: General exam is a white male, no distress HEENT: Pupils equally round. Oropharynx clear. Neck is supple no lymphadenopathy or thyromegaly Cardiovascular regular rate and rhythm without murmur, no S3 or S4 Lungs clear no wheezing or crackles Abdomen is soft with positive bowel sounds. No obvious organomegaly exam is deferred Extremities no cyanosis clubbing or edema, cap refill brisk Skin no rash Data Other Data: Other data: LFTs normal Initial EKG sinus rhythm, left axis deviation, rate of eighty-six. Repeat EKG is similar. Troponin is negative Chest x-ray left lower lobe infiltrate. A&P Assessment and plan (1) Chest pain: Patient was directly taken to angiogram where no significant flow-limiting stenosis was noted. Patient has significant pleuritic quality to pain so a D-dimer was performed. This was positive. CTA has been ordered. Initiate Protonix Status: Acute (2) Pneumonia: Levaquin p.o. Covid rapid and PCR. Rapid was negative. Procalcitonin level checked and negative Depending upon CTA, potential patient discharged if ok with primary service. Status: Acute (3) Hyperglycemia: A1c checked and elevated. Patient reports he is intolerant of Metformin. Consider Januvia on discharge. Status: Acute Additional A&P Information Ankylosing spondylitis GERD. Add Protonix. Limit anti-inflammatories. Tobacco dependency. Encourage cessation. Multiple other medical problems as outlined in past medical history Consult Attestations Medical Necessity Statement: As per primary Coding Level of Care Code Acute Telegraph Inspector for g [place] Diagnoses Chest pain R07.9 Pneumonia J18.9 Hyperglycemia R73.9
[2020-12-17 10:33] LABS: Estmated Average Glucose 163; Hemoglobin A1C 7.3 % (4.0-6.0)
[2020-12-17] MEDS: HYDROcodone-acetaminophen 5-325 mg Tablet 1 TAB PO (10:50)
[2020-12-17] MEDS: levoFLOXacin 750 mg Tablet PO (10:51)
[2020-12-17] MEDS: pantoprazole DR 40 mg Tablet PO (10:51)
[2020-12-17 10:56] LABS: Thyroid Stimulating Hormone 1.92 uIU/mL (0.27-4.20)
--- NOTE | 2020-12-17 11:11 | CT_ITS ---
WS: [id number] CT angio chest PE protcl [id number] REASON FOR EXAM: elevated dimer TECHNIQUE: Coronal and sagittal 2-D and MIP reformations. IV CONTRAST ADMINISTERED: 71 mL of Omnipaque 350 TOTAL EXAM DLP: 525.[address] scans at [facility] use at least one of these dose optimization techniques: automat ed exposure control; mA and/or kV adjustment per patient size (includes targeted exams where dose is matched to clinical indication); or iterative reconstruction. FINDINGS: The opacification of the pulmonary arteries was not optimal. This is felt to be technical with mis ti tamiko of the bolus with imaging prior to good opacification of the pulmonary arteries. With additional windowing, do not identify any pulmonary emboli. No abnormality of the thoracic aorta is identified. No mediastinal or hilar mass. There are several areas of scarring and/or atelectasis in both lungs with no definite acute infiltrat e identifiable. No lung nodules or lung mass. No pleural effusions. No other intrathoracic abnormalities. Thoracic spine findings indicative of ankylosing spondylitis confirmed by previous abdomen films that demonstrate fusion of the sacroiliac joints. CT/CT angio chest PE protcl [id number] IMPRESSION: Suboptimal opacification of the pulmonary arteries with poor opacification of t he right and left pulmonary arteries which is felt to be due to imaging just be fore the main contrast bolus would enter the main right and left pulmonary yamil robert. There is some opacification from contrast preceding the main bolus and with win dowing no pulmonary emboli were identified. No other acute abnormality of the chest was identified. Ankylosing spondylitis.
--- NOTE | 2020-12-17 11:29 | PC.PHAR ---
pt states he takes care of his own medications-pt states he takes pravastatin once to twice a week medication doesnt pull up on ext med history when last filled-notes are made in the pharmacy comments
--- NOTE | 2020-12-17 11:59 | ECG_ITS ---
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 Measurements Intervals [place] Rate: 85 P: 50 WI: 172 QRS: -33 QRSD: 89 T: 27 QT: 336 QTc: 401 Interpretive Statements SINUS RHYTHM LEFT AXIS DEVIATION [QRS AXIS < -30] LOW QRS VOLTAGE IN PRECORDIAL LEADS [QRS DEFLECTION < 1.0 mV IN CHEST LEADS] POSSIBLE RIGHT VENTRICULAR CONDUCTION DELAY [RSR (QR) IN V1/V2] MODERATE VOLTAGE CRITERIA FOR LVH, CONSIDER NORMAL VARIANT [MEETS CRITERIA IN ONE OF: R(aVL), S(V1), R(V5), R(V5/V6)+S(V1)] Compared to ECG 12/17/2020 06:58:53 Low QRS voltage now present Electronically Signed On 12-18-2020 19:40:38 CDT by Vashti Dominguez M.D. [id number]
--- NOTE | 2020-12-17 12:42 | PC.NURSE ---
TR Band removed. No hematoma, swelling or bleeding noted. Pt tolerated well. Pt had no c/o pain or discomfort at the present time.
[2020-12-17 12:56] LABS: SARS Covid-2 Antigen Negative (Negative)
[2020-12-17] MEDS: iohexol 350 mg/mL 100 mL Btl IV (13:37)
--- NOTE | 2020-12-17 15:47 | USCV_ITS ---
Félix Torres Wilder Age: 50 Gender: M : 1970 Exam Date: 12/17/2020 15:58 Ordering Phys: Tanner Hassan MD Technologist: Elsy Yates [place]am Location[place] [facility] [place]ication: ELEVATED DIMER HISTORY: Lower extremity pain. PROCEDURES: Venous duplex imaging was performed in bilateral lower extremities. The following venous structures were evaluated: common femoral vein, profunda vein, proximal portion of the greater saphenous vein, superficial femoral vein, and the popliteal vein. In addition, the posterior tibial and peroneal trunk were evaluated. Serial compression, augmentation maneuvers, and spectral Doppler flow evaluation were performed. FINDINGS: No evidence of DVT seen in any vessel visualized at this time. CONCLUSIONS No evidence of right lower extremity DVT. No evidence of left lower extremity DVT. Jeanmarie Lowe MD (Electronically Signed) Final Date: 17 December 2020 16:32 S
--- NOTE | 2020-12-17 19:20 | PC.NURSE ---
Pt discharged home. Pts IV removed no redness or swelling noted. Pt discharge instructions given along with prescriptions and follow up appointments. Pt had no c/o pain or discomfort at the time of discharge.
--- NOTE | 2020-12-18 10:39 | PC.SOCIAL ---
discharge follow up call made, spoke with patient. he denies chest pain or sob. reports he feels so much better. he didn't get pantoprazole from the pharmacy but will get it today. patient wishes to make his follow up appointment with dr. harden. is aware to not lift anymore than 5 lbs for the next 5 days. patient denies any questions or concerns.
[2020-12-18 16:47] LABS: Coronavirus Test Green County Not Detected
== END 2020-12-17 19:20 | disposition home or self-care (01) | DRG 286 ==
LOC: ER 06:23 → CCL 07:22 → CSU 09:13
PROVIDERS: Internal Medicine; Admitting Provider Internal Medicine; Emergency Provider Family Medicine; PCP Internal Medicine; Visit Provider Internal Medicine
PROC: 4A023N7 Measurement of Cardiac Sampling and Pressure, Left Heart, Percutaneous Approach (ICD-10-PCS; principal; 2020-12-17 07:30)
DX: R07.9 Chest pain, unspecified (principal); J18.9 Pneumonia, unspecified organism; I10 Essential (primary) hypertension; E78.5 Hyperlipidemia, unspecified; K21.9 Gastro-esophageal reflux disease without esophagitis; Z87.442 Personal history of urinary calculi; M45.9 Ankylosing spondylitis of unspecified sites in spine; F17.210 Nicotine dependence, cigarettes, uncomplicated; R73.9 Hyperglycemia, unspecified; G89.29 Other chronic pain
CPT/HCPCS: 71045; 71275; 80053; 83036; 84145; 84443; 84484; 85025; 85378; 87426; 87635; 93005; 93458; 93970; 96374; 96375; 99285; C1760; C1769; C1887; C1894; J1644; J2250; J2270; J2405; J3010; J3490; J7030; Q9967

== ENCOUNTER 2021-04-22 06:24 | Outpatient (CLI) | payer OTHER, SELFPAY ==
[2021-04-22 09:02] LABS: Testosterone Total 193.9 ng/dL (193-740)
[2021-04-25 15:33] LABS: Testosterone, Free 48.6 pg/mL (46.0-224.0)
== END 2021-04-22 06:25 | disposition home or self-care (01) ==
PROVIDERS: PCP Internal Medicine; Visit Provider Internal Medicine
DX: R53.83 Other fatigue (principal)
CPT/HCPCS: 84153; 84402; 84403

== ENCOUNTER 2021-06-23 05:42 | Day surgery (SDC) | payer OTHER, SELFPAY ==
[2021-06-21 13:48] VITALS: BMI 36.8
[2021-06-23 06:02] VITALS: BP 141/81; PULSE 88; RESP 18; TEMP 36.6; O2SAT 95
[2021-06-23] MEDS: sodium chloride 0.9% 1,000 ML 30 ML IV (06:17)
--- NOTE | 2021-06-23 06:55 | ANES.PREANE2 ---
Pre-Anesthetic Assessment Height/Weight: Height 1.68 m Weight 103.419 kg Temp Pulse Resp BP Pulse Ox 97.8 F 88 18 141/81 95 06/23/21 06:02 06/23/21 06:02 06/23/21 06:02 06/23/21 06:02 06/23/21 06:02 Preop Diagnosis: diagnostic Operation Date: 06/23/21 07:00 Proposed Procedures p Colonoscopy 04476/z12.11(Not Applicable) - Jah Germain MD Was Beta Dashawn taken within 24 hours: N/A Was Clonidine taken within 24 hours: N/A Last intake: Intake Last Liquid Date 06/22/21 Last Liquid Time 23:15 Last Solid Date 06/21/21 Last Solid Time 20:00 Social Alcohol and Tobacco 0.25 pack(s) per day Exam alert, oriented x 3, clear to auscultation bilaterally and regular rate & rhythm Airway Submandibular: within normal limits Cervical ROM: within normal limits Mallampati: Class II Dentition: full Comments: Comments: ankylosing spondylitis limited neck mobility Pulmonary None reported CV/HEM Hypertension heart cath december 2020- all clear kidney stones Hepatic None reported GI Gastroesophageal Reflux Disease (controlled) Metabolic Diabetes Mellitus and Hyperlipidemia Musc/skel Lower Back Pain Neuropsych None reported Anesthetic Plan ASA status: 3 Anesthesia: MAC Risk of > 500 ml blood loss (7ml/kg in children): No Medications/Allergies Home Medications Medication Instructions Recorded Confirmed Last Taken Type lisinopril 20 mg tablet 20 mg PO QAM 07/15/19 06/21/21 06/22/21 History ondansetron HCl 4 mg tablet 4 mg PO Q8H PRN 07/15/19 06/21/21 06/22/21 History (Zofran) tamsulosin 0.4 mg capsule (Flomax) 0.4 mg PO DAILY PRN 07/15/19 06/21/21 06/22/21 History Realfood Organic Multivitamin 1 tab PO DAILY 12/17/20 06/21/21 06/22/21 History ascorbic acid (vitamin C) 1,000 mg 1,000 mg PO DAILY 12/17/20 06/21/21 06/22/21 History tablet (Vitamin C) dnuufrm-cmfdbciknmrxz-cqomqjdh 250 3 tab PO BID PRN 12/17/20 06/21/21 06/22/21 History mg-250 mg-65 mg tablet (Excedrin Migraine) celecoxib 200 mg capsule 200 mg PO BID PRN 12/17/20 06/21/21 06/22/21 History etanercept 50 mg/mL (1 mL) 50 mg SUBCUT Q7D 12/17/20 06/21/21 06/22/21 History subcutaneous syringe (Enbrel) magnesium 1 tab PO DAILY 12/17/20 06/21/21 06/22/21 History pravastatin 40 mg tablet See Rx Instructions .ROUTE .COMPLEX 12/17/20 06/21/21 06/22/21 History prednisone 10 mg tablet 20 mg PO DAILY PRN 12/17/20 06/21/21 06/22/21 History zinc 1 cap PO DAILY 12/17/20 06/21/21 06/22/21 History amlodipine 5 mg tablet 5 mg PO DAILY #90 tab 01/14/21 06/21/21 06/22/21 Rx empagliflozin 10 mg tablet 10 mg PO DAILY 06/23/21 06/23/21 06/22/21 History (Jardiance) Allergies Allergy/AdvReac Type Severity Reaction Status Date / Time No Known Allergies Allergy Verified 06/23/21 06:02 Current Medications Generic Name Dose Route Start Last Admin Trade Name Freq PRN Reason Stop Dose Admin Sodium Chloride 1,000 mls @ 30 mls/hr 06/23/21 06:00 06/23/21 06:17 Sodium Chloride 0.9% IV 06/24/21 05:59 30 mls/hr .Q24H CHANDU Administration PFSH Anesthesia Medical History Ankylosing spondylitis Bilateral hydrocele GERD (gastroesophageal reflux disease) Hyperlipidemia Hypertension Urolithiasis Surgical History History of appendectomy History of cholecystectomy History of lithotripsy History of tonsillectomy Family History Grandmother Cancer Grandfather Cancer Social History Smoking and tobacco status: current every day smoker Alcohol intake: current Alcohol intake frequency: holidays/special occasions only Adopted: No Caregiver/support person: No Lives independently: No Household members: spouse Marital status: Current occupational status: employed History of recent travel: No Current gender identity: Male Data Anesthesia Cardiac Studies: No Data to Display
--- NOTE | 2021-06-23 06:58 | W.PM.OPSFHP ---
Same Day Surgery H&P Indication for Procedure/HPI DATE OF PROCEDURE: June 23, 2021 CHIEF COMPLAINT/INDICATIONFOR SURGICAL PROCEDURE: colonoscopy PREOP DIAGNOSIS: diagnostic PLANNED PROCEDURE: Operation Date: 06/23/21 07:00 Proposed Procedures p Colonoscopy 12047/z12.11(Not Applicable) - Jah Germain MD Medications/Allergies* Home Medications Medication Instructions Recorded Confirmed Type lisinopril 20 mg tablet 20 mg PO QAM 07/15/19 06/21/21 History ondansetron HCl 4 mg tablet 4 mg PO Q8H PRN 07/15/19 06/21/21 History (Zofran) tamsulosin 0.4 mg capsule (Flomax) 0.4 mg PO DAILY PRN 07/15/19 06/21/21 History Realfood Organic Multivitamin 1 tab PO DAILY 12/17/20 06/21/21 History ascorbic acid (vitamin C) 1,000 mg 1,000 mg PO DAILY 12/17/20 06/21/21 History tablet (Vitamin C) uorzngq-mjqnydgzzwmlo-tczthbse 250 3 tab PO BID PRN 12/17/20 06/21/21 History mg-250 mg-65 mg tablet (Excedrin Migraine) celecoxib 200 mg capsule 200 mg PO BID PRN 12/17/20 06/21/21 History etanercept 50 mg/mL (1 mL) 50 mg SUBCUT Q7D 12/17/20 06/21/21 History subcutaneous syringe (Enbrel) magnesium 1 tab PO DAILY 12/17/20 06/21/21 History pravastatin 40 mg tablet See Rx Instructions .ROUTE .COMPLEX 12/17/20 06/21/21 History prednisone 10 mg tablet 20 mg PO DAILY PRN 12/17/20 06/21/21 History zinc 1 cap PO DAILY 12/17/20 06/21/21 History empagliflozin 10 mg tablet 10 mg PO DAILY 06/23/21 06/23/21 History (Jardiance) Allergies/Adverse Reactions Allergy/AdvReac Type Severity Reaction Status Date / Time No Known Allergies Allergy Verified 06/23/21 06:02 Current Medications: Generic Name Dose Route Start Last Admin Trade Name Freq PRN Reason Stop Dose Admin Sodium Chloride 1,000 mls @ 30 mls/hr 06/23/21 06:00 06/23/21 06:17 Sodium Chloride 0.9% IV 06/24/21 05:59 30 mls/hr .Q24H CHANDU Administration Pertinent History/Comorbid Conditions* Medical History (Updated 12/18/20 @ 12:14 by Sp Sood M.D) Ankylosing spondylitis Bilateral hydrocele GERD (gastroesophageal reflux disease) Hyperlipidemia Hypertension Urolithiasis Surgical History (Updated 07/13/19 @ 09:50 by Kory Holt MD) History of appendectomy History of cholecystectomy History of lithotripsy History of tonsillectomy Family History (Updated 07/15/19 @ 11:12 by CLAY Hartmann) Cancer Grandmother Grandfather Social History Smoking and tobacco status: current every day smoker Alcohol intake: current Alcohol intake frequency: holidays/special occasions only Adopted: No Caregiver/support person: No Lives independently: No Household members: spouse Marital status: Current occupational status: employed History of recent travel: No Current gender identity: Male Pertinent Exam Findings alert, oriented x 3 and regular rate & rhythm Recommendations Surgery/Procedure today Coding Level of Care Code Acute Manufacturing Support Engineer for [facility]
--- NOTE | 2021-06-23 07:00 | P.ANESASSM_ITS ---
Pre-Anesthetic Assessment Height/Weight: Height 1.68 m Weight 103.419 kg Temp Pulse Resp BP Pulse Ox 97.8 F 88 18 141/81 95 06/23/21 06:02 06/23/21 06:02 06/23/21 06:02 06/23/21 06:02 06/23/21 06:02 Preop Diagnosis: diagnostic Operation Date: 06/23/21 07:00 Proposed Procedures p Colonoscopy 34553/[id number](Not Applicable) - Jah Germain MD Familial anesthetic complications: nausea Was Beta Dashawn taken within 24 hours: N/A Was Clonidine taken within 24 hours: N/A Last intake: Intake Last Liquid Date 06/22/21 Last Liquid Time 23:15 Last Solid Date 06/21/21 Last Solid Time 20:00 Social Alcohol and Tobacco 0.25 pack(s) per day Exam alert, oriented x 3, clear to auscultation bilaterally and regular rate & rhythm Airway Submandibular: within normal limits Cervical ROM: within normal limits Mallampati: Class II Dentition: full Comments: Comments: ankylosing spondylitis Pulmonary None reported CV/HEM Hypertension heart cath december 2020- all clear None reported Hepatic None reported GI Gastroesophageal Reflux Disease Metabolic Diabetes Mellitus and Hyperlipidemia [facility] [place] Lower Back Pain Neuropsych None reported Anesthetic Plan ASA status: 3 Anesthesia: MAC Medications/Allergies Home Medications Medication Instructions Recorded Confirmed Last Taken Type lisinopril 20 mg tablet 20 mg PO QAM 07/15/19 06/21/21 06/22/21 History ondansetron HCl 4 mg tablet 4 mg PO Q8H PRN 07/15/19 06/21/21 06/22/21 History (Zofran) tamsulosin 0.4 mg capsule (Flomax) 0.4 mg PO DAILY PRN 07/15/19 06/21/21 06/22/21 History [employer] Multivitamin 1 tab PO DAILY 12/17/20 06/21/21 06/22/21 History ascorbic acid (vitamin C) 1,000 mg 1,000 mg PO DAILY 12/17/20 06/21/21 06/22/21 History tablet (Vitamin C) [id number] 250 3 tab PO BID PRN 12/17/20 06/21/21 06/22/21 History mg-250 mg-65 mg tablet (Excedrin Migraine) celecoxib 200 mg capsule 200 mg PO BID PRN 12/17/20 06/21/21 06/22/21 History etanercept 50 mg/mL (1 mL) 50 mg SUBCUT Q7D 12/17/20 06/21/21 06/22/21 History subcutaneous syringe (Enbrel) magnesium 1 tab PO DAILY 12/17/20 06/21/21 06/22/21 History pravastatin 40 mg tablet See Rx Instructions .ROUTE .COMPLEX 12/17/20 06/21/21 06/22/21 History prednisone 10 mg tablet 20 mg PO DAILY PRN 12/17/20 06/21/21 06/22/21 History zinc 1 cap PO DAILY 12/17/20 06/21/21 06/22/21 History amlodipine 5 mg tablet 5 mg PO DAILY #90 tab 01/14/21 06/21/21 06/22/21 Rx empagliflozin 10 mg tablet 10 mg PO DAILY 06/23/21 06/23/21 06/22/21 History (Jardiance) Allergies Allergy/AdvReac Type Severity Reaction Status Date / Time No Known Allergies Allergy Verified 06/23/21 06:02 Current Medications Generic Name Dose Route Start Last Admin Trade Name Freq PRN Reason Stop Dose Admin Sodium Chloride 1,000 mls @ 30 mls/hr 06/23/21 06:00 06/23/21 06:17 Sodium Chloride 0.9% IV 06/24/21 05:59 30 mls/hr .Q24H CHANDU Administration PFSH Anesthesia Medical History Ankylosing spondylitis Bilateral hydrocele GERD (gastroesophageal reflux disease) Hyperlipidemia Hypertension Urolithiasis Surgical History History of appendectomy History of cholecystectomy History of lithotripsy History of tonsillectomy Family History Grandmother Cancer Grandfather Cancer Social History Smoking and tobacco status: current every day smoker Alcohol intake: current Alcohol intake frequency: holidays/special occasions only Adopted: No Caregiver/support person: No Lives independently: No Household members: spouse Marital status: Current occupational status: employed History of recent travel: No Current gender identity: Male Data Anesthesia Cardiac Studies: No Data to Display
[2021-06-23 07:24] VITALS: BP 105/65; PULSE 85; RESP 16; TEMP 36.7; O2SAT 92
--- NOTE | 2021-06-23 07:28 | ANE.PACU2 ---
Inpatient post-anesthesia follow up: Airway intact: Yes Vital signs: Temperature 98.1 F Pulse Rate 85 Respiratory Rate 16 Blood Pressure 105/65 Pulse Oximetry 92 Oxygen Delivery Me thod Room Air Oxygen Flow Rate Fraction of Inspir ed Oxygen Hydration adequate: Yes Nausea and vomiting: No Pain level: 1 Mental status: Baseline
[2021-06-23 07:31] VITALS: BP 128/75; PULSE 80; RESP 18; O2SAT 93
[2021-06-23 07:41] VITALS: BP 121/88; PULSE 80; RESP 18; O2SAT 95
== END 2021-06-23 07:50 | disposition home or self-care (01) ==
PROVIDERS: PCP Internal Medicine; Visit Provider Surgery
PROC: 0DJD8ZZ Inspection of Lower Intestinal Tract, Via Natural or Artificial Opening Endoscopic (ICD-10-PCS; CPT 45378; principal; 2021-06-23 07:00)
DX: Z12.11 Encounter for screening for malignant neoplasm of colon (principal); Z90.49 Acquired absence of other specified parts of digestive tract; D12.5 Benign neoplasm of sigmoid colon; K64.8 Other hemorrhoids; D12.8 Benign neoplasm of rectum; I10 Essential (primary) hypertension; K21.9 Gastro-esophageal reflux disease without esophagitis; E11.9 Type 2 diabetes mellitus without complications; E78.5 Hyperlipidemia, unspecified; F17.210 Nicotine dependence, cigarettes, uncomplicated
CPT/HCPCS: 45380; 88305; J2704; J7030

== ENCOUNTER → 2021-06-30 15:45 | Outpatient (BNVA) | payer OTHER, SELFPAY | PROVIDERS: PCP Internal Medicine; Visit Provider Internal Medicine Rheumatology | DX: M45.9 Ankylosing spondylitis of unspecified sites in spine (principal); Z79.899 Other long term (current) drug therapy; Z71.85 Encounter for immunization safety counseling | CPT/HCPCS: 36415; 80076; 82565; 85025; 86140 ==

== ENCOUNTER → 2022-04-07 11:46 | Outpatient (BNVA) | payer OTHER, SELFPAY | PROVIDERS: PCP Internal Medicine; Visit Provider Internal Medicine Rheumatology | DX: M45.9 Ankylosing spondylitis of unspecified sites in spine (principal); Z71.85 Encounter for immunization safety counseling; Z79.899 Other long term (current) drug therapy | CPT/HCPCS: 80076; 82565; 85025 ==

== ENCOUNTER 2023-09-20 08:04 | Outpatient (CLI) | payer OTHER, SELFPAY ==
[2023-09-20 08:39] LABS: Basophils # 0.1 10^3/uL (0.0-0.1); Basophils % 0.5 %; Eosinophils # 0.2 10^3/uL (0.0-0.8); Eosinophils % 1.1 %; Hematocrit 52.9 % (37-53); Lymphocytes # 2.1 10^3/uL (0.8-4.8); Lymphocytes % 14.6 %; Mean Corpuscular HGB Conc 32.7 g/dL (30-55); Mean Corpuscular Hemoglobin 30.1 pg (27-33); Mean Platelet Volume 9.3 fL (7.4-10.4); Monocytes # 1.1 10^3/uL (0.2-0.9); Monocytes % 7.5 %; Neutrophils # 10.66 10^3/uL (1.8-7.7); Neutrophils % 75.9 %; Nucleated Red Blood Cells % 0 %; Platelet Count 337 10^3/cmm (157-399); Red Blood Count 5.75 10^6/uL (3.85-5.65); Red Cell Distribution Width 13.2 % (12.1-15.1); White Blood Count 14.05 10^3/uL (3.29-11.43)
[2023-09-20 08:41] LABS: Erythrocyte Sedimentation Rate 19 mm/hr (0-10)
[2023-09-20 09:04] LABS: Alanine Aminotransferase 34 U/L (0-41); Albumin Level 4.5 g/dL (3.5-5.2); Alkaline Phosphatase 53 U/L (40-130); Aspartate Amino Transferase 25 U/L (0-40); C Reactive Protein 4.3 mg/L (0.0-4.9); Globulin 3.3 g/dL (1.3-4.6); Glomerular Filtration Rate 77.9 mL/min (90-130); Total Bilirubin 0.7 mg/dL (0.15-1.2); Total Protein 7.8 g/dL (6.6-8.7)
== END 2023-09-20 08:05 | disposition home or self-care (01) ==
LOC: LAB 08:04
PROVIDERS: PCP Internal Medicine; Visit Provider Internal Medicine Rheumatology
DX: M45.9 Ankylosing spondylitis of unspecified sites in spine (principal); Z79.899 Other long term (current) drug therapy
CPT/HCPCS: 36415; 80076; 82565; 85025; 85651; 86140

== ENCOUNTER → 2023-11-15 09:19 | Outpatient (BNVA) | payer OTHER, SELFPAY | PROVIDERS: PCP Internal Medicine; Visit Provider Nurse Practitioner Family | DX: J02.9 Acute pharyngitis, unspecified (principal) | CPT/HCPCS: 87880 ==

== ENCOUNTER → 2024-09-09 14:31 | Outpatient (BNVA) | payer BC, SELFPAY | PROVIDERS: PCP Internal Medicine; Visit Provider Internal Medicine Rheumatology | DX: Z79.899 Other long term (current) drug therapy (principal) | CPT/HCPCS: 36415; 80076; 82565; 85025; 85651; 86140 ==

== ENCOUNTER 2024-11-05 05:43 | Outpatient (CLI) | payer OTHER, SELFPAY ==
[2024-11-05 06:24] LABS: Hematocrit 48.3 % (37-53); Hemoglobin 15.60 g/dL (11.27-16.99); Mean Corpuscular HGB Conc 32.3 g/dL (30-55); Mean Corpuscular Hemoglobin 29.9 pg (27-33); Mean Corpuscular Volume 92.5 fl (82-101); Nucleated Red Blood Cells % 0 %; Platelet Count 318 10^3/cmm (157-399); Red Blood Count 5.22 10^6/uL (3.85-5.65); White Blood Count 10.61 10^3/uL (3.29-11.43)
[2024-11-05 06:44] LABS: Alanine Aminotransferase 36 U/L (0-41); Albumin Level 4.1 g/dL (3.5-5.2); Alkaline Phosphatase 57 U/L (40-130); Aspartate Amino Transferase 27 U/L (0-40); Globulin 2.7 g/dL (1.3-4.6); Total Protein 6.8 g/dL (6.6-8.7)
== END 2024-11-05 05:44 | disposition home or self-care (01) ==
LOC: LAB 05:46
PROVIDERS: PCP Internal Medicine; Visit Provider Internal Medicine Rheumatology
DX: Z79.899 Other long term (current) drug therapy (principal)
CPT/HCPCS: 36415; 80076; 82565; 85025; 85651; 86140

== ENCOUNTER 2025-01-09 07:03 | Outpatient (CLI) | payer OTHER, SELFPAY ==
[2025-01-09 07:23] LABS: Hematocrit 49.7 % (37-53); Hemoglobin 16.40 g/dL (11.27-16.99); Mean Corpuscular HGB Conc 33.0 g/dL (30-55); Mean Corpuscular Hemoglobin 29.9 pg (27-33); Mean Corpuscular Volume 90.5 fl (82-101); Nucleated Red Blood Cells % 0 %; Platelet Count 410 10^3/cmm (157-399); Red Blood Count 5.49 10^6/uL (3.85-5.65); White Blood Count 10.58 10^3/uL (3.29-11.43)
[2025-01-09 07:44] LABS: Alanine Aminotransferase 22 U/L (0-41); Albumin Level 4.3 g/dL (3.5-5.2); Alkaline Phosphatase 68 U/L (40-130); Aspartate Amino Transferase 20 U/L (0-40); Globulin 3.3 g/dL (1.3-4.6); Total Protein 7.6 g/dL (6.6-8.7)
== END 2025-01-09 07:04 | disposition home or self-care (01) ==
LOC: LAB 07:07
PROVIDERS: PCP Internal Medicine; Visit Provider Internal Medicine Rheumatology
DX: Z79.899 Other long term (current) drug therapy (principal)
CPT/HCPCS: 36415; 80076; 82565; 85025; 85651; 86140